=== PATIENT | male | born 1990 | race Caucasian/White ===

== ENCOUNTER 2019-03-26 13:27 | Outpatient (CLI) | payer BC ==
--- NOTE | 2019-03-26 14:03 | RAD ---
EXAM: Lumbar spine 3 views: HISTORY: Lumbar radiculopathy COMPARISON: 07/20/2016 FINDINGS: Disc osteophytosis changes are typically at L4-L5 No evidence for acute fracture or dislocation involving the visualized spine. There are disc osteophytosis and facet arthrosis changes. No evidence for malalignment. No evidence for a bone lesion. IMPRESSION: Spondylosis. No acute process. Stable from prior study.
--- NOTE | 2019-03-26 15:06 | MRI ---
MR the lumbar spine without contrast INDICATION: Lumbar radiculopathy; history of stress fracture COMPARISON: Lumbar spinal radiographs dated 03/26/2019 and an MR lumbar spine dated July 20, 2016 . TECHNIQUE: Multiplanar multisequence MR images were obtained of lumbar spine without IV contrast. FINDINGS: Bone marrow: There are Modic endplate degenerative changes at L4-5 and L5-S1 that are roughly stable to the prior exam. Distal spinal cord and conus: Normal. The conus seen to terminate at L1. Visualized retroperitoneum and paraspinal soft tissues: There is increased T2 signal seen within the paraspinal musculature bilaterally at the L3-4 level and bilaterally at the L5-S1 level. Vertebral levels: L5-S1: There is bilateral spondylolysis with grade 1 spinal listhesis at L5-S1.. No appreciable centr al canal or neural foraminal narrowing is demonstrated. L4-5: There is a broad-based bulge with facet hypertrophy inducing mild bilateral neural foraminal na rrowing L3-4: There is a mild broad-based bulge without appreciable central canal or neural foraminal narrowi ng L2-3: No appreciable central canal or neuroforaminal narrowing. L1-L2: No appreciable central canal or neuroforaminal narrowing. T12-L1: No appreciable central canal or neuroforaminal narrowing. IMPRESSION: 1. Bilateral spondylolysis and grade 1 spinal listhesis of L5 on S1. 2. Moderate disc degenerative and facet osteoarthritic change at L3-4 through L5-S1. 3. Nonspecific increased T2 signal within the paraspinal musculature of the mid to lower lumbar spine may reflect muscular strain. Denervation is felt to be less likely.
== END 2019-03-26 13:28 | disposition home or self-care (01) ==
LOC: TBSIIMAG 13:27
PROVIDERS: ATTEND Anesthesiology Pain Medicine
DX: M47.26 Other spondylosis with radiculopathy, lumbar region (principal); M43.07 Spondylolysis, lumbosacral region; M43.17 Spondylolisthesis, lumbosacral region; M51.16 Intervertebral disc disorders with radiculopathy, lumbar region; M51.17 Intervertebral disc disorders with radiculopathy, lumbosacral region
CPT/HCPCS: 72100; 72148